=== PATIENT | male | born 1965 | race Caucasian/White ===

== ENCOUNTER 2018-05-22 08:20 | Emergency (ER) | payer OTHER ==
[~2018-05-22] VITALS: Ht 165.1 cm; Wt 68.0 kg
[~2018-05-22 08:20] MED LIST: VICKS PO
== END 2018-05-22 11:01 | disposition home or self-care (01) ==
LOC: ER 08:20
DX: K29.60 Other gastritis without bleeding (principal)